=== PATIENT | female | born 1975 | race Caucasian/White ===

== ENCOUNTER 2019-03-22 21:32 | Emergency (ER) | payer BC ==
--- NOTE | 2019-03-22 22:31 | C.PDOC ---
History Of Present Illness 43 year old female presents to the ER with chills, "difficulty swallowing" and "neck swelling", and subjective dyspnea starting one hour ago. Denies fever or other complaints. <Graham Thompson - Last Filed: 03/23/19 00:39> History Per: Patient History/Exam Limitations: no limitations Onset/Duration Of Symptoms: Hrs Current Symptoms Are (Timing): Still Present Current Respiratory Medications: See Home Med List Associated Symptoms: Chills, Other ("difficulty swallowing", subjective dyspnea). denies: Fever Recent travel outside of the [place]: No <Graham Thompson - Last Filed: 03/23/19 00:39> <Heather Naranjo - Last Filed: 03/23/19 05:02> Time Seen by Provider: 03/22/19 22:28 Chief Complaint (Nursing): Shortness Of Breath Past Medical History Reviewed: Historical Data, Nursing Documentation, Vital Signs Vital Signs: Last Vital Signs Temp 98.7 F 03/22/19 21:42 Pulse 117 H 03/22/19 21:42 Resp 14 03/22/19 22:09 BP 133/87 03/22/19 21:42 Pulse Ox 100 03/22/19 21:42 Primary Care Provider: Dwain Dumont - Medical History PMH: HTN Family History: States: Unknown Family Hx - Social History Hx Alcohol Use: No Hx Substance Use: No - Immunization History Hx Tetanus Toxoid Vaccination: No Hx Influenza Vaccination: No Hx Pneumococcal Vaccination: No <Graham Thompson - Last Filed: 03/23/19 00:39> Vital Signs: Last Vital Signs Temp 99.9 F H 03/23/19 02:16 Pulse 130 H 03/23/19 02:16 Resp 22 03/23/19 02:16 BP 132/74 03/23/19 02:16 Pulse Ox 96 03/23/19 02:16 <Heather Naranjo - Last Filed: 03/23/19 05:02> Review Of Systems Constitutional: Positive for: Chills. Negative for: Fever ENT: Positive for: Other ("difficulty swallowing") Cardiovascular: Negative for: Chest Pain, Palpitations Respiratory: Positive for: Other (Subjective dyspnea). Negative for: Cough Gastrointestinal: Negative for: Nausea, Vomiting Neurological: Negative for: Weakness, Numbness <Graham Thompson - Last Filed: 03/23/19 00:39> Physical Exam - Physical Exam Appears: Non-toxic Skin: Normal Color, Warm Head: Atraumatic, Normacephalic Eye(s): bilateral: Normal Inspection Oral Mucosa: Moist Throat: Erythema (Mild) Neck: Normal, Supple Chest: Symmetrical, No Tenderness Cardiovascular: Rhythm Regular Respiratory: Normal Breath Sounds, No Rales, No Rhonchi, No Wheezing Gastrointestinal/Abdominal: Soft, No Tenderness Neurological/Psych: Oriented x3, Normal Speech <Graham Thompson - Last Filed: 03/23/19 00:39> ED Course And Treatment - Laboratory Results Result Diagrams: 03/22/19 23:30 03/22/19 23:30 O2 Sat by Pulse Oximetry: 100 (room air) Pulse Ox Interpretation: Normal <Graham Thompson - Last Filed: 03/23/19 00:39> - Laboratory Results Result Diagrams: 03/22/19 23:30 03/22/19 23:30 Lab Results: PT 11.1 SECONDS (9.7-12.2) 03/22/19 23:30 INR 1.0 03/22/19 23:30 APTT 34.6 SECONDS (21-34) H 03/22/19 23:30 Total Bilirubin 0.4 mg/dL (0.2-1.3) 03/22/19 23:30 AST 46 U/L (14-36) H 03/22/19 23:30 ALT 27 U/L (9-52) 03/22/19 23:30 Alkaline Phosphatase 59 U/L (38-126) 03/22/19 23:30 Total Protein 7.1 g/dL (6.3-8.3) 03/22/19 23:30 Albumin 3.8 g/dL (3.5-5.0) 03/22/19 23:30 Globulin 3.3 gm/dL (2.2-3.9) 03/22/19 23:30 Albumin/Globulin Ratio 1.2 (1.0-2.1) 03/22/19 23:30 Urine Color Straw (YELLOW) 03/22/19 22:59 Urine Clarity Clear (Clear) 03/22/19 22:59 Urine pH 6.0 (5.0-8.0) 03/22/19 22:59 Ur Specific [place] 1.010 (1.003-1.030) 03/22/19 22:59 Urine Protein 2+ mg/dL (NEGATIVE) H 03/22/19 22:59 Urine Glucose (UA) Normal mg/dL (Normal) 03/22/19 22:59 Urine Ketones Negative mg/dL (NEGATIVE) 03/22/19 22:59 Urine Blood 1+ (NEGATIVE) H 03/22/19 22:59 Urine Nitrate Negative (NEGATIVE) 03/22/19 22:59 Urine Bilirubin Negative (NEGATIVE) 03/22/19 22:59 Urine Urobilinogen Normal mg/dL (0.2-1.0) 03/22/19 22:59 Ur Leukocyte Esterase Neg Ann/uL (Negative) 03/22/19 22:59 Urine WBC (Auto) 1 /hpf (0-5) 03/22/19 22:59 Urine RBC (Auto) 5 /hpf (0-3) H 03/22/19 22:59 Ur Squamous Epith Cells < 1 /hpf (0-5) 03/22/19 22:59 Urine Bacteria Rare (<OCC) 03/22/19 22:59 Urine HCG, Qual Negative (NEGATIVE) 03/22/19 22:59 Urine HCG, Qual Negative (NEGATIVE) 03/22/19 22:59 Pulse Ox Interpretation: Normal Progress Note: Report Submission Date: March 23, 2019 3:10:49 AM EDT. Name:JUAN SAENZ Exam Date:March 23, 2019 1:56:33 AM EDT. Modality Type:CT. Description:CT - NECK SOFT TISSUE. Gender:F Laterality:Not applicable. :75 Referring Physician:Graham Thompson (DO). PROCEDURE: CT SOFT TISSUE NECK WITH CONTRAST. REASON FOR EXAM: Swelling to the neck. Difficulty swallowing. TECHNIQUE: The patient was scanned in a multi-detector CT scanner. High resolution transaxial imaging was performed following intravenous administration of contrast material. Sagittal and coronal images were reconstructed. COMPARISON: None. FINDINGS: Mild hypertrophy of the adenoids. Mild hypertrophy of the palatine tonsils. Probably infectious/inflammatory pathology. No fluid collection or drainable abscess formation. No evidence of critical airway narrowing. Mild enlarged cervical lymph nodes, probably benign and reactive the largest measuring 1.2 cm. Normal bilateral parotid glands. Normal bilateral script artist spaces. Normal bilateral parapharyngeal spaces. Normal bilateral sublingual and submandibular glands. Normal retropharyngeal space. Normal perivertebral space. Normal epiglottis, bilateral vallecula and hypopharynx. The pre-epiglottic and paraglottic adipose spaces are normal. Normal visualized bilateral piriform si nuses, aryepiglottic folds, vocal cords, and arytenoid-cricoid articulations. Normal subglottic trachea. Normal bilateral lobes of the thyroid gland. Normal visualized pulmonary apices. Normal visualized paranasal sinuses. Normal visualized cervical spine. IMPRESSION: Mild hypertrophy of the adenoids. Mild hypertrophy of the palatine tonsils. Probably infectious/inflammatory pathology. No fluid collection or drainable abscess formation. No evidence of critical airway narrowing. Mild enlarged cervical lymph nodes, probably benign and reactive the largest measuring 1.2 cm. . Electronically signed on March 23, 2019 3:10:49 AM EDT by: Aguilar Hopkins M.D., Certified by ABR, MSK, [facility]. Reevaluation Time: 03:15 Reassessment Condition: Improved <Heather Naranjo - Last Filed: 03/23/19 05:02> Medical Decision Making Medical Decision Making: Blood work, CXR, urinalysis, flu swab, and rapid strep ordered. IV fluids and tylenol administered. <Graham Thompson - Last Filed: 03/23/19 00:39> Disposition <Graham Thompson - Last Filed: 03/23/19 00:39> Counseled Patient/Family Regarding: Studies Performed, Diagnosis, Need For Followup, Rx Given - Disposition Disposition Time: 01:00 <Heather Naranjo - Last Filed: 03/23/19 05:02> - Disposition Referrals: Dwain Dumont MD [Staff Provider] - Tushar Harkins MD [Staff Provider] - Disposition: HOME/ ROUTINE Condition: FAIR Additional Instructions: Por favor regrese si los sntomas recurren. Prescriptions: Penicillin VK [Penicillin VK Tab] 2 tab PO BID #40 tab Instructions: Sore Throat, Adult (DC) Forms: [facility] (Yi) Print Language: ROMANIAN - Clinical Impression Clinical Impression: Hypertrophy of palatine tonsil, Adenoids, hypertrophy, Sore throat - Scribe Statement The provider has reviewed the documentation as recorded by the Scribnicolas Odonnell All medical record entries made by the Scribe were at my direction and personally dictated by me. I have reviewed the chart and agree that the record accurately reflects my personal performance of the history, physical exam, medical decision making, and the department course for this patient. I have also personally directed, reviewed, and agree with the discharge instructions and disposition. <Graham Thompson - Last Filed: 03/23/19 00:39>
[2019-03-22] MEDS ORDERED: Sodium Chloride 0.9% 1,000 ML IV ONE (22:34)
[2019-03-22 23:09] LABS: HCG,QUALITATIVE URINE NEGATIVE (NEGATIVE)
[2019-03-22 23:12] LABS: SQUAMOUS EPITHIAL < 1 /hpf (0-5); URINE BACTERIA RARE (<OCC); URINE BILIRUBIN NEGATIVE (NEGATIVE); URINE CLARITY Clear (Clear); URINE COLOR Straw (YELLOW); URINE GLUCOSE (UA) NORMAL (Normal); URINE LEUKOCYTE ESTERASE NEG Leu/uL (Negative); URINE PROTEIN 2+ mg/dL (NEGATIVE); URINE UROBILINOGEN NORMAL mg/dL (0.2-1.0)
[2019-03-22 23:18] LABS: URINE BLOOD 1+ (NEGATIVE)
[2019-03-22 23:51] LABS: ALB/GLOB RATIO 1.2 (1.0-2.1); ALBUMIN 3.8 g/dL (3.5-5.0); ALT/SGPT 27 U/L (9-52); AST/SGOT 46 U/L (14-36); BLOOD UREA NITROGEN 24 mg/dL (7-17); CALCIUM 9.4 mg/dl (8.6-10.4); GFR NON-AFRICAN AMERICAN > 60
[2019-03-22 23:56] LABS: PARTIAL THROMBOPLASTIN TIME 34.6 SECONDS (21-34); PROTHROMBIN TIME 11.1 SECONDS (9.7-12.2)
[2019-03-23 00:06] LABS: BASO % 0.2 % (0.0-2.0); EOS # 0.2 K/uL (0.0-0.7); EOS % 1.4 % (0.0-4.0); HEMOGLOBIN 12.5 g/dL (11.0-16.0); LYMPH # 0.9 K/uL (1.0-4.3); MEAN CELL VOLUME 85.3 fL (81.0-99.0); MEAN CORPUSCULAR HEMOGLOBIN 28.9 pg (27.0-31.0); MEAN CORPUSCULAR HGB CONC 33.9 g/dL (33.0-37.0); MONO # 0.7 K/uL (0.0-0.8); MONO % 4.6 % (0.0-10.0); NEUT # 13.9 K/uL (1.8-7.0); NEUT % 87.8 % (50.0-75.0); NRBC % 0.1 % (0.0-2.0); PLATELET COUNT 236 K/uL (130-400); RBC 4.33 Mil/uL (3.80-5.20); RED CELL DISTRIBUTION WIDTH 13.4 % (11.5-14.5)
[2019-03-23 00:21] LABS: WHITE BLOOD COUNT 15.8 K/uL (4.8-10.8)
[2019-03-23] MEDS ORDERED: Iodixanol 320 mg/ml 150 ml Bottle IV ONE (00:32)
[2019-03-23 00:56] LABS: INFLUENZA A B NEGATIVE FOR FLU A/B (NEGATIVE)
[2019-03-23 01:30] LABS: EOSINOPHIL 1 % (0-4); LYMPHOCYTE 4 % (20-40); MONOCYTE 5 % (0-10); NEUTROPHIL 90 % (50-75); PLATELET ESTIMATE NORMAL (NORMAL); TOTAL CELLS COUNTED 100
[2019-03-23 02:19] VITALS: BP 132/74; PULSE 130; RESP 22; TEMP 99.9; O2SAT 96
[2019-03-23] MEDS ORDERED: Sodium Chloride 0.9% 1,000 ML ONE ×2 (02:25→03:31)
[2019-03-23] MEDS ORDERED: Sodium Chloride 0.9% 500 ML IV ONE (03:20)
--- NOTE | 2019-03-23 10:58 | RAD ---
Date of service: 03/22/2019 HISTORY: Shortness of breath COMPARISON: 08/29/2016 TECHNIQUE: Chest PA and lateral FINDINGS: LUNGS: No active pulmonary disease. Bibasilar breast and nipple shadows. PLEURA: No significant pleural effusion identified. No pneumothorax apparent. CARDIOVASCULAR: No aortic atherosclerotic calcification present. Normal cardiac size. OSSEOUS STRUCTURES: No significant abnormalities. VISUALIZED UPPER ABDOMEN: Normal. OTHER FINDINGS: None. IMPRESSION: No active disease.
--- NOTE | 2019-03-23 13:34 | CT ---
Date of service: 03/23/2019 PROCEDURE: CT NECK WITH CONTRAST HISTORY: neck swelling/difficulty swallowing COMPARISON: None available. TECHNIQUE: CT of the neck with intravenous contrast. Coronal and sagittal reformats generated. Intravenous contrast dose: 90 mL Radiation dose: Total exam DLP = 494.04 mGy-cm. This CT exam was performed using one or more of the following dose reduction techniques: Automated exposure control, adjustment of the mA and/or kV according to patient size, and/or use of iterative reconstruction technique. FINDINGS: NASOPHARYNX: Very mild hypertrophy of the adenoids without drainable collection. Fossa of Rosenmuller are slightly effaced. SUPRAHYOID NECK: Visualized oral pharynx shows evidence of prominent/lingular/palatine tonsillar enlargement consistent with tonsillitis or pharyngitis. No appreciable focal low-density to suggest abscess is seen. Small amount of calcification is seen in the left palatine tonsillar region which may suggest prior chronic infection. Tongue base region is unremarkable. INFRAHYOID NECK: Unremarkable larynx, hypopharynx, and supraglottic space. Vocal cords intact. MASS: None. GLANDS: Parotid and submandibular glands unremarkable. Normal size thyroid gland, without nodule. LYMPH NODES: There is scattered nonspecific mildly enlarged lymph nodes throughout the neck, more than likely reactive. No focal low density within the lymph nodes are seen to suggest necrosis. The majority of enlarged lymph nodes are seen in the level 2 region. No appreciable supraclavicular lymphadenopathy or thoracic inlet lymphadenopathy is seen. No upper mediastinal lymphadenopathy is noted. CERVICAL SPINE: No fracture or focal lesion. No malalignment of the cervical spine. No significant degenerative disc disease or disc bulging. C1-C2 articulation is within normal limits. VASCULAR STRUCTURES: Unremarkable. OTHER FINDINGS: Evaluation of the upper lungs reveals no evidence of infiltrate or nodule. Thoracic inlet is within normal limits. Visualized sinuses are clear. Retro-orbital regions are unremarkable. Visualized brain is within normal limits. Vocal cords are unremarkable. Evaluation of the teeth is limited by artifact. No significant large periapical lucencies are noted. Temporomandibular joints are unremarkable. Mastoid air cells are well aerated. IMPRESSION: No appreciable CT scan evidence of abscess. Mild adenoidal hypertrophy and enlargement as well as greater lingual tonsillar enlargement, also once again without focal low density to suggest abscess. Findings suggest pharyngitis and/or tonsillitis. Multiple mildly scattered enlarged lymph nodes are more than likely reactive. No appreciable mass. This agrees with preliminary report provided by the on-call radiologist.
== END 2019-03-23 04:20 | disposition home or self-care (01) ==
LOC: C.ER 21:32
DX: J35.3 Hypertrophy of tonsils with hypertrophy of adenoids (principal); J02.9 Acute pharyngitis, unspecified
CPT/HCPCS: 70491; 71046; 80053; 81001; 84703; 85025; 85610; 85730; 87070; 87430; 87804; 96361; 96365; 96375; 99284; J0696; J1885; J7030; J7040; Q9967